=== PATIENT | male | born 2000 | race Two or more races ===

== ENCOUNTER 2024-10-19 22:17 | Emergency (ER) | payer MEDICAID, SELFPAY ==
[2024-10-19 22:19] VITALS: BMI 25.0
[2024-10-19 23:57] VITALS: BP 119/77; PULSE 70; RESP 16; TEMP 37.3; O2SAT 99
--- NOTE | 2024-10-20 00:33 | PD.EDMALE ---
ED Male Genitalurinary RME/HPI General Chief complaint: Urogenital-Male Stated complaint: UTI GETTING WORSE Time Seen by Provider: 10/20/24 00:17 Arrival date/time: 10/19/24 22:17 24M with no significant PMH presents to ED with 2 weeks of penile head discharge/pain. No gross dsysuria. Patient is sexually active. Patient went to PCP yesterday who gave him Macrobid. Limitations: no limitations Related Data Previous Rx's ?Medication ?Instructions ?Recorded doxycycline hyclate 100 mg tablet 100 mg PO BID 7 days #14 tabs 10/20/24 Allergies Allergy/AdvReac Type Severity Reaction Status Date / Time No Known Allergies Allergy Verified 10/19/24 22:19 Review of Systems Review of Systems Systems Reviewed: All systems reviewed, normal except as documented Constitutional Constitutional: Reports system reviewed and no additional complaints, except as documented, Denies fever(s) and Denies headache(s) ENT Ears, Nose, Mouth, and Throat: Denies disequilibrium and Denies headache(s) Cardiovascular Cardiovascular: Reports system reviewed and no additional complaints, except as documented, Denies chest pain and Denies dyspnea Respiratory Respiratory: Reports system reviewed and no additional complaints, except as documented, Denies cough and Denies dyspnea Gastrointestinal Gastrointestinal: Reports system reviewed and no additional complaints, except as documented, Denies abdominal pain, Denies nausea and Denies vomiting Genitourinary Genitourinary: Reports as per HPI and Reports genital pain Neurologic Neurologic: Reports system reviewed and no additional complaints, except as documented, Denies confusion, Denies disequilibrium and Denies headache(s) Psychiatric Psychiatric: Denies confusion Past Medical History Social History SMOKING STATUS: Current some day smoker ED Exam General Limitations: Present no limitations General appearance: Present alert and in no apparent distress Head Head exam: Present atraumatic Eye Eye exam: Present normal appearance, PERRL and EOMI ENT ENT exam: Present normal exam, normal oropharynx and mucous membranes moist Neck Neck exam: Present normal inspection, full ROM and trachea midline Chest Chest inspection: Present normal inspection and symmetric chest wall rise Respiratory Respiratory exam: Present normal lung sounds bilaterally Cardiovascular Cardiovascular exam: Present regular rate, normal rhythm and normal heart sounds Abdominal Exam Abdominal exam: Present soft and normal bowel sounds Expanded Exam exam: Present balanitis Extremities Exam Extremities exam: Present normal inspection and full ROM Back Exam Back exam: Present normal inspection and full ROM Neurological Exam Neurological exam: Present alert, oriented X3 and CN II-XII intact Psychiatric Psychiatric exam: Present normal affect and normal mood Skin Skin exam: Present warm, dry, intact and normal color Course Quality Measures none Orders Category Date Time Status Chlamydia/GC/TV - PCR Stat Lab 10/20/24 00:27 Received Urinalysis Stat Lab 10/20/24 00:27 Completed Urine Culture Stat Lab 10/20/24 00:27 Received Doxycycline [Vibramycin] Med 10/20/24 00:17 Discontinued 100 mg PO X1 ONE Fluconazole [Diflucan] Med 10/20/24 00:17 Discontinued 150 mg PO X1 ONE cefTRIAXone [Rocephin] 1,000 mg Med 10/20/24 00:17 Discontinued Lidocaine 1% 20 ml [Xylocaine 1% 20 ML] 2.1 ml IM X1 Vital Signs Vital signs: Vital Signs Temperature 99.2 F 10/19/24 23:57 Pulse Rate 70 10/19/24 23:57 Respiratory Rate 16 10/19/24 23:57 Blood Pressure 119/77 10/19/24 23:57 Pulse Oximetry (%) 99 10/19/24 23:57 Oxygen Delivery Method Room Air 10/19/24 23:57 O2 at 99% on RA and WNLs Urogenital - Male MDM Narrative MDM Narrative:: 24M with no significant PMH presents to ED with 2 weeks of penile head discharge/pain. No gross dsysuria. Patient is sexually active. Patient went to PCP yesterday who gave him Macrobid. Physical exam with retail performance specialist reveals white discharge around head of penis and swollen glans with small area of erosion. Patient is afebrile, alert, but anxious/crying. Will treat for presumptive GC and balanitis. UA minimal blood. UC and GC pending at time of DC. [employer] given. Patient data External records reviewed:: None Clinical information provided by:: patient Social determinants that could affect healthcare access:: none Patient has the following chronic illnesses:: none How is presenting disease/condition affected by chronic disease/condition?: no chronic disease Evaluation data The following diagnostics were reviewed and interpreted by me:: lab results Lab and/or radiology exams considered but not ordered:: ordered Interpretation Summary: above Medications / Prescriptions Medications or Prescriptions considered but not ordered:: ordered Medication administrations:: Medication Administration History Discontinued Medications Ceftriaxone Sodium 1,000 mg/ (Lidocaine HCl 2.1 ml) 0 mg IM X1 ONE Stop: 10/20/24 00:18 Last Admin: 10/20/24 02:22 Dose: 1,000 mg Documented By: BD Doxycycline Hyclate (Doxycycline 100 Mg Tablet) 100 mg PO X1 ONE Stop: 10/20/24 00:18 Last Admin: 10/20/24 02:21 Dose: 100 mg Documented By: BD Fluconazole (Fluconazole 150 Mg Tablet) 150 mg PO X1 ONE Stop: 10/20/24 00:18 Last Admin: 10/20/24 02:21 Dose: 150 mg Documented By: BD above Consultations Consultation(s) initiated? (list below): No Diagnosis Urogenital Male Differential Diagnosis: urinary tract infection, priapism, urethritis, epididymitis, genital herpes simplex, prostatitis, acute retention of urine, inguinal hernia and other (balanitis and male concern for STD w/o diagnosis) Most likely diagnosis given after review of the tests above:: balanitis and male concern for STD w/o diagnosis Admission Indicated Admission indicated?: not indicated Admission Request Was there a request for admission?: No Disposition Plan Disposition Plan: Discharge Discharge Attestation Discharge Attestation: The patient and all family members were given an opportunity to ask questions and understood the discharge instructions. Discharge instructions specifically effects, indications for sooner follow up or return to the emergency department, and the expected course of current diagnosis. Patient condition: Stable Discharge Plan Plan Patient Disposition: HOME (Self Care) Discharge Disposition comment: Stable Prescriptions/Referrals Prescriptions/Med Rec: New doxycycline hyclate 100 mg tablet 100 mg PO BID 7 Days Qty: 14 0RF Referrals: Jerrell Sanchez MD [Primary Care Provider] - In 1 week Problem List Clinical Impression: Balanitis, Concern about STD in male without diagnosis Patient/Caregiver Discharge Instructions Education Materials: ED Balanitis Additional Instructions: Please follow-up with PCP within 24-48 hours and return immediately if symptoms worsen. Can put Vaseline on wound on penis head to protect it. Can stop Macrobid. Print Language: Romanian Stand Alone Forms: Patient Portal Info Letter ROSA/SAHIL Supervising Physician ROSA/SAHIL Supervising Physician: Dr. Gonzalez
[2024-10-20 01:55] LABS: Collection Type, Urine Clean Catch; Squamous Epithelial Cell,Urine 0 /hpf (0-5)
[2024-10-20 02:04] LABS: Bilirubin,Urine Negative (Negative); Blood,Urine 1+ (Negative); Clarity,Urine Clear (Clear/Hazy); Color,Urine Yellow (Lt Yel-Yel); Glucose, Urine Negative (Negative); Ketones,Urine Negative (Negative); Leukocyte Esterase,Urine Negative (Negative); Nitrite,Urine Negative (Negative); Protein,Urine Trace (Neg - Trace); RBC,Urine 6 /hpf (0-3); Specific Gravity,Urine 1.027 (1.001-1.035); Urobilinogen,Urine Negative mg/dL (0.0-1.0); WBC,Urine 2 /hpf (0-5)
[2024-10-20] MEDS: FLUCONAZOLE 150 MG TABLET PO (02:21)
[2024-10-20] MEDS: DOXYCYCLINE 100 MG TABLET PO (02:21)
[2024-10-20] MEDS: cefTRIAXone 1,000 MG, LIDOCAINE 1% 20 ML 2.1 ML IM (02:22)
[2024-10-20 10:00] LABS: Chlamydia trachomatis PCR Negative (Not Detect); Neisseria Gonorrhoeae DNA PCR Negative (Not Detect); Trichomonas Negative (Negative)
== END 2024-10-20 02:30 | disposition home or self-care (01) ==
PROVIDERS: Physician Assistant; Emergency Provider Emergency Medicine; PCP Family Medicine
DX: N48.1 Balanitis (principal); Z20.2 Contact with and (suspected) exposure to infections with a predominantly sexual mode of transmission
CPT/HCPCS: 80053; 81001; 82378; 85025; 87086; 87491; 87591; 87661; 96372; 99283; J0696; J3490; A9270